=== PATIENT | male | born 1955 | race Caucasian/White ===

== ENCOUNTER 2020-12-09 06:43 | Inpatient (IN) ==
[2020-12-09] MEDS ORDERED: Lidocaine -MPF 2% 2 ML VIAL ONE (07:31)
[2020-12-09] MEDS ORDERED: Lidocaine HCL 4 ML Topical Solution (Laryng-O-Jet Kit Sterile Pak) TP ONE (07:31)
[2020-12-09] MEDS ORDERED: *HR* Midazolam HCl 2 MG/2 ML VIAL ONE (07:31)
[2020-12-09] MEDS ORDERED: *HR* Rocuronium Bromide 50 MG/5 ML VIAL ONE ×2 (07:31→09:31)
[2020-12-09] MEDS ORDERED: *HR* FentaNYL (PF) 100 MCG/2 ML VIAL ONE ×2 (07:31→08:37)
[2020-12-09] MEDS ORDERED: Dexamethasone 4 MG/ML VIAL ONE ×2 (07:31→07:32)
[2020-12-09] MEDS ORDERED: *HR* Propofol 200 MG/20 ML VIAL IVP ONE (07:31)
[2020-12-09] MEDS ORDERED: *HR* Succinylcholine 200 MG/10 ML VIAL IVP ONE (07:31)
[2020-12-09] MEDS ORDERED: Ondansetron 4 MG/2 ML VIAL ONE (07:31)
[2020-12-09] MEDS ORDERED: CeFAZolin Syr 2,000MG/20 ML 2,000 MG/20 ML SYRINGE IVPB ONE (07:49)
[2020-12-09] MEDS ORDERED: *HR* Phenylephrine 10 MG/ML VIAL ONE (07:51)
[2020-12-09] MEDS ORDERED: *HR* OxyCODONE Immed Rel 5 MG TABLET PO PRN (07:57)
[2020-12-09] MEDS ORDERED: *HR* HYDROmorphone (PF) 1 MG/ML SYRINGE IVP PRN (07:57)
[2020-12-09] MEDS ORDERED: Ondansetron 4 MG/2 ML VIAL IVP PRN ×2 (07:57→11:17)
[2020-12-09] MEDS ORDERED: Ringers Solution, Lactated 1,000 ML IVC SCH ×2 (08:00)
[2020-12-09] MEDS ORDERED: *HR* HYDROMORPHONE 2 MG/ML VIAL ONE (08:53)
[2020-12-09] MEDS ORDERED: EPHEDrine 50 MG/ML VIAL ONE (09:08)
[2020-12-09] MEDS ORDERED: Sugammadex Sodium 200 MG/2 ML VIAL IV ONE ×2 (09:23→10:05)
[2020-12-09] MEDS ORDERED: Iron Sucrose Complex 400 MG in 0.9 % Sodium Chloride 250 ML IVPB ONE (11:17)
[2020-12-09] MEDS: 0.9 % Sodium Chloride 1,000 ML IVC SCH (11:30)
[2020-12-09] MEDS: *HR* HYDROcodone/Acet 5/325 mg TABLET PO PRN ×3 (11:30→23:38)
[2020-12-09] MEDS: Ipratropium/Albuterol Neb 3 ML IH SCH ×3 (11:36→20:25)
[2020-12-09] MEDS: Ketorolac 15 MG/ML VIAL IVP SCH ×3 (11:54→23:39)
[2020-12-09] MEDS: *HR* Heparin 5,000 UNIT/ML VIAL SQ SCH ×2 (14:42→23:44)
[2020-12-09] MEDS: Gabapentin 300 MG CAPSULE PO SCH ×2 (14:42→23:40)
[2020-12-09] MEDS ORDERED: amLODIPine 5 MG TABLET PO SCH (21:00)
[2020-12-09] MEDS: traZODone 50 MG TABLET PO SCH (23:40)
[2020-12-09] MEDS: Famotidine 20 MG TABLET PO SCH (23:40)
[2020-12-09] MEDS: Sennosides/Docusate Sodium TABLET PO SCH (23:44)
[2020-12-10] MEDS: Ipratropium/Albuterol Neb 3 ML IH SCH ×6 (00:11→20:13)
[2020-12-10] MEDS: 0.9 % Sodium Chloride 1,000 ML IVC SCH (01:18)
[2020-12-10 05:52] LABS: Hematocrit 44.2 % (37.5-50.1); Hemoglobin 14.3 g/dL (12.9-16.9); Mean Corpuscular HGB Conc 32.4 g/dL (31.6-35.5); Mean Corpuscular Hemoglobin 28.5 pg (28.0-33.3); Mean Corpuscular Volume 88.2 fL (83.0-100.0); Mean Platelet Volume 9.1 fL (9.4-12.4); Platelet Count 271 K/mcL (140-400); Red Blood Count 5.01 M/mcL (4.19-5.50); Red Cell Distribution Width 13.1 % (11.5-14.5); White Blood Count 16.1 K/mcL (4.3-11.1)
[2020-12-10 06:14] LABS: % Iron Saturation 56 % (20-55); BUN/Creatinine Ratio 16 (6-26); Blood Urea Nitrogen 17 mg/dL (8-23); Carbon Dioxide 24 mEq/L (23-29); Chloride 104 mEq/L (98-107); Glucose 140 mg/dL (70-105); Iron 193 mcg/dL (65-175); Magnesium 2.1 mg/dL (1.6-2.6); Osmolality,Calculated 290 (280-300); Potassium 3.8 mEq/L (3.5-5.1); Sodium 138 mEq/L (136-145); Transferrin 246 mg/dL (203-362); eGFR For African Americans > 60 (> 60); eGFR For Non-African Americans > 60 (> 60)
[2020-12-10] MEDS: Ketorolac 15 MG/ML VIAL IVP SCH ×4 (06:43→23:02)
[2020-12-10] MEDS: *HR* Heparin 5,000 UNIT/ML VIAL SQ SCH ×3 (06:43→23:01)
[2020-12-10] MEDS: Famotidine 20 MG TABLET PO SCH ×2 (07:25→23:01)
[2020-12-10] MEDS: Valsartan 80 MG TABLET PO SCH (07:25)
[2020-12-10] MEDS: Sennosides/Docusate Sodium TABLET PO SCH ×2 (07:25→23:01)
[2020-12-10] MEDS: Gabapentin 300 MG CAPSULE PO SCH ×3 (07:25→23:02)
[2020-12-10] MEDS: *HR* HYDROcodone/Acet 5/325 mg TABLET PO PRN ×2 (07:26→16:09)
[2020-12-10] MEDS: traZODone 50 MG TABLET PO SCH (23:01)
[2020-12-10] MEDS: amLODIPine 5 MG TABLET PO SCH (23:01)
[2020-12-11] MEDS: Ipratropium/Albuterol Neb 3 ML IH SCH ×5 (00:08→16:13)
[2020-12-11] MEDS: *HR* HYDROcodone/Acet 5/325 mg TABLET PO PRN ×2 (03:35→08:40)
[2020-12-11] MEDS: *HR* Heparin 5,000 UNIT/ML VIAL SQ SCH ×3 (06:11→20:58)
[2020-12-11] MEDS: Ketorolac 15 MG/ML VIAL IVP SCH ×4 (06:11→23:49)
[2020-12-11] MEDS: Gabapentin 300 MG CAPSULE PO SCH ×3 (08:39→20:58)
[2020-12-11] MEDS: Sennosides/Docusate Sodium TABLET PO SCH ×2 (08:39→20:58)
[2020-12-11] MEDS: Famotidine 20 MG TABLET PO SCH ×2 (08:39→20:58)
[2020-12-11] MEDS: Valsartan 80 MG TABLET PO SCH (08:40)
[2020-12-11] MEDS: traZODone 50 MG TABLET PO SCH (20:58)
[2020-12-11] MEDS: amLODIPine 5 MG TABLET PO SCH (20:58)
[2020-12-12 04:15] LABS: BUN/Creatinine Ratio 24 (6-26); Blood Urea Nitrogen 25 mg/dL (8-23); Calcium 8.6 mg/dL (8.6-10.3); Carbon Dioxide 20 mEq/L (23-29); Chloride 107 mEq/L (98-107); Glucose 104 mg/dL (70-105); Osmolality,Calculated 289 (280-300); Potassium 4.6 mEq/L (3.5-5.1); Sodium 137 mEq/L (136-145); eGFR For African Americans > 60 (> 60); eGFR For Non-African Americans > 60 (> 60)
[2020-12-12] MEDS: Ketorolac 15 MG/ML VIAL IVP SCH ×3 (06:09→17:41)
[2020-12-12] MEDS: *HR* Heparin 5,000 UNIT/ML VIAL SQ SCH ×3 (06:09→22:06)
[2020-12-12] MEDS: Valsartan 80 MG TABLET PO SCH (07:29)
[2020-12-12] MEDS: Famotidine 20 MG TABLET PO SCH ×2 (07:29→22:06)
[2020-12-12] MEDS: Gabapentin 300 MG CAPSULE PO SCH ×3 (07:30→22:05)
[2020-12-12] MEDS: Sennosides/Docusate Sodium TABLET PO SCH ×2 (07:32→22:05)
[2020-12-12] MEDS: traZODone 50 MG TABLET PO SCH (22:05)
[2020-12-12] MEDS: *HR* HYDROcodone/Acet 5/325 mg TABLET PO PRN (22:05)
[2020-12-12] MEDS: amLODIPine 5 MG TABLET PO SCH (22:06)
[2020-12-12] MEDS: Ipratropium/Albuterol Neb 3 ML IH PRN (23:34)
[2020-12-13] MEDS: Ketorolac 15 MG/ML VIAL IVP SCH ×3 (00:22→11:14)
[2020-12-13] MEDS: *HR* Heparin 5,000 UNIT/ML VIAL SQ SCH ×3 (07:03→21:05)
[2020-12-13] MEDS: Famotidine 20 MG TABLET PO SCH ×2 (07:47→21:05)
[2020-12-13] MEDS: Valsartan 80 MG TABLET PO SCH (07:47)
[2020-12-13] MEDS: Gabapentin 300 MG CAPSULE PO SCH ×3 (07:47→21:05)
[2020-12-13] MEDS: Sennosides/Docusate Sodium TABLET PO SCH ×2 (07:47→21:04)
[2020-12-13] MEDS: *HR* HYDROcodone/Acet 5/325 mg TABLET PO PRN (21:05)
[2020-12-13] MEDS: amLODIPine 5 MG TABLET PO SCH (21:05)
[2020-12-13] MEDS: traZODone 50 MG TABLET PO SCH (21:05)
[2020-12-13] MEDS: Ipratropium/Albuterol Neb 3 ML IH PRN (21:26)
[2020-12-14] MEDS: *HR* Heparin 5,000 UNIT/ML VIAL SQ SCH ×2 (05:24→14:30)
[2020-12-14] MEDS: Gabapentin 300 MG CAPSULE PO SCH ×3 (07:18→19:58)
[2020-12-14] MEDS: Sennosides/Docusate Sodium TABLET PO SCH ×2 (07:18→19:58)
[2020-12-14] MEDS: Valsartan 80 MG TABLET PO SCH (07:18)
[2020-12-14] MEDS: Famotidine 20 MG TABLET PO SCH ×2 (07:18→19:58)
[2020-12-14] MEDS: amLODIPine 5 MG TABLET PO SCH (19:58)
[2020-12-14] MEDS: *HR* HYDROcodone/Acet 5/325 mg TABLET PO PRN (22:23)
[2020-12-14] MEDS: traZODone 50 MG TABLET PO SCH (22:23)
[2020-12-15] MEDS: *HR* HYDROcodone/Acet 5/325 mg TABLET PO PRN ×3 (02:44→22:54)
[2020-12-15] MEDS: Valsartan 80 MG TABLET PO SCH (08:41)
[2020-12-15] MEDS: Sennosides/Docusate Sodium TABLET PO SCH ×2 (08:41→20:07)
[2020-12-15] MEDS: Gabapentin 300 MG CAPSULE PO SCH ×3 (08:41→20:07)
[2020-12-15] MEDS: Famotidine 20 MG TABLET PO SCH ×2 (08:42→20:08)
[2020-12-15] MEDS ORDERED: Acetaminophen 325 MG TABLET PO PRN (11:39)
[2020-12-15] MEDS: Ipratropium/Albuterol Neb 3 ML IH SCH ×4 (14:06→23:55)
[2020-12-15] MEDS: amLODIPine 5 MG TABLET PO SCH (20:08)
[2020-12-15] MEDS: traZODone 50 MG TABLET PO SCH (22:54)
[2020-12-16] MEDS: Ipratropium/Albuterol Neb 3 ML IH SCH ×6 (04:07→22:27)
[2020-12-16] MEDS: Sennosides/Docusate Sodium TABLET PO SCH ×2 (07:22→21:41)
[2020-12-16] MEDS: Famotidine 20 MG TABLET PO SCH ×2 (07:22→21:41)
[2020-12-16] MEDS: Valsartan 80 MG TABLET PO SCH (07:22)
[2020-12-16] MEDS: *HR* HYDROcodone/Acet 5/325 mg TABLET PO PRN ×2 (07:22→23:57)
[2020-12-16] MEDS: Gabapentin 300 MG CAPSULE PO SCH ×3 (07:22→21:41)
[2020-12-16] MEDS: amLODIPine 5 MG TABLET PO SCH (21:40)
[2020-12-16] MEDS: traZODone 50 MG TABLET PO SCH (23:57)
[2020-12-17] MEDS: Ipratropium/Albuterol Neb 3 ML IH SCH ×2 (03:55→08:00)
[2020-12-17 07:12] VITALS: BP 144/103
[2020-12-17] MEDS: Sennosides/Docusate Sodium TABLET PO SCH (08:53)
[2020-12-17] MEDS: Gabapentin 300 MG CAPSULE PO SCH (08:53)
[2020-12-17] MEDS: Famotidine 20 MG TABLET PO SCH (08:53)
[2020-12-17] MEDS: Valsartan 80 MG TABLET PO SCH (08:53)
== END 2020-12-17 10:55 | disposition home or self-care (01) | DRG 164 ==
LOC: SAMDAY 06:43 → 2NNU 11:17
PROVIDERS: ADMIT Thoracic Surgery (Cardiothoracic Vascular Surgery); ATTEND Thoracic Surgery (Cardiothoracic Vascular Surgery)